=== PATIENT | male | born 1985 | race Caucasian/White ===

== ENCOUNTER 2024-10-06 12:08 | Outpatient (CLI) | payer OTHER, SELFPAY ==
--- NOTE | ~2024-10-06 | XR_ITS ---
EXAMINATION: XR barium swallow DATE: 10/06/2024 13:09 INDICATION: Swallowing difficulty TECHNIQUE: The patient drank thick barium, gas-producing crystals, and thin barium. Fluoroscopic spot radiographs of the hypopharynx and esophagus were obtained. Fluoroscopy exposure time was 1.4 minut es. COMPARISON: None. FINDINGS: The pharynx is symmetric and without evidence of mass lesion or mucosal irregularity. The e sophagus is normal without mass or stricture. Esophageal motility is normal. Borderline sliding-type hiatal hernia with gastroesophageal junction extending up to 2 cm above level of the diaphragm. There was no gastroesophageal reflux with provocative maneuvers. IMPRESSION: 1. Borderline minimal sliding-type hiatal hernia with gastroesophageal junction 2 cm above level of d iaphragm which is the upper limits of normal but without gastroesophageal reflux with provocative man euvers. Reviewed, dictated and finalized at location A. IMPRESSION: 1. Borderline minimal sliding-type hiatal hernia with gastroesophageal junction 2 cm above level of diaphragm which is the upper limits of normal but without gastroesophageal reflux with provocative maneuvers.
== END 2024-10-06 12:09 | disposition home or self-care (01) ==
DX: R13.10 Dysphagia, unspecified (principal)
CPT/HCPCS: 74220